=== PATIENT | female | born 2000 | race Caucasian/White ===

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

== ENCOUNTER 2021-08-31 16:34 | Outpatient (CLI) | payer MEDICAID | END 2021-08-31 23:59 | disposition home or self-care (01) | LOC: LAB 16:34 | PROVIDERS: ATTEND Nurse Practitioner | DX: N39.0 Urinary tract infection, site not specified (principal) | CPT/HCPCS: 87086; 87181 ==